=== PATIENT | female | born 1970 | race Caucasian/White ===

== ENCOUNTER 2016-02-27 08:39 | Emergency (ER) | payer OTHER ==
[2016-02-27 09:05] VITALS: BP 138/95
--- NOTE | 2016-02-27 10:19 | UC ---
Back Pain HPI - HPI Summary HPI Summary: Low back pain, no injury, onset 05/2015 constantly. Pt has had injections for pain relief 11/2015. Pt sees Dr. Arias, pain specialist. Pt had imaging recently through [facility], and [facility]. She is uncertain of her dx. she doesnt know where her injections were done. she was seen [address] Arias for the persistent pain and was told there was nothing more she could do. she did give her a topical that she has not used yet. She doesnt have any imaging reports with her. She thought about gpoing to pcp today but thought that she would need xrays and would be sent here instead. pain in left low back. no radiation down legs, no w/n/t. no hematuria. no h/o kidney stones. no dysuria. she is going on a cruise and 2 weeks and needs to feel better. She did PT which made the pain worse. denies saddle anesthesia, loss of bowel and bladder function - History of Current Complaint Chief Complaint: UCBackPain Stated Complaint: LOW BACK PAIN Time Seen by Provider: 02/27/16 10:17 Hx Last Menstrual Period: 3rd week in 2015 - Allergies/Home Medications Allergies/Adverse Reactions: Allergies Allergy/AdvReac Type Severity Reaction Status Date / Time Meperidine [From Demerol HCl] Allergy Vomiting Verified 02/27/16 09:05 Penicillins Allergy Hives Verified 02/27/16 09:05 avoids nsaids Allergy See Comment Uncoded 02/27/16 09:12 Home Medications: Home Medications Acetaminophen [Tylenol] 650 mg PO BID PRN 02/27/16 [History Confirmed 02/27/16] [id number] C- [Glucosamine Chondroitin] 2 cap PO DAILY [History Confirmed 02/27/16] Mesalamine CAP(NF) [Pentasa(NF)] 500 mg PO QID 02/27/16 [History Confirmed 02/26] Metaxalone TAB* [Skelaxin TAB*] 800 mg PO TID PRN 02/27/16 [History Confirmed ] [place]-3 Fatty Acids [Fish Oil] 1,000 mg PO DAILY 02/27/16 [History Confirmed 01/31] Phendimetrazine Tartrate 35 mg PO TID 02/27/16 [History Confirmed 02/27/16] Turmeric (Curcuma Longa) [Turmeric] 1 tab PO QAM 02/27/16 [History Confirmed 01/31] Tylenol Arthritis 1,300 mg PO DAILY PRN 02/27/16 [History Confirmed 02/27/16] PMH/Surg Hx/FS Hx/Imm Hx Previously Healthy: Yes - Surgical History Surgical History: Yes Surgery Procedure, Year, and Place: uterine ablation, cholecystectomy, breast reduction, urethral sling - Family History Known Family History: Positive: Hypertension - Social History Alcohol Use: Occasionally Substance Use Type: None Smoking Status (MU): Former Smoker When Did the Patient Quit Smoking/Using Tobacco: 1993 Review of Systems Constitutional: Negative Skin: Negative Eyes: Negative ENT: Negative Respiratory: Negative Cardiovascular: Negative Gastrointestinal: Negative Genitourinary: Negative Motor: Other - left low back pain Neurovascular: Negative Musculoskeletal: Negative Neurological: Negative Psychological: Negative All Other Systems Reviewed And Are Negative: Yes Physical Exam Triage Information Reviewed: Yes Appearance: Well-Appearing, Well-Nourished - tearful talking about frustration. she declines exam but wants me to just palpate her back to see if I can feel anything in her left low back. Vital Signs: Initial Vital Signs Temp 99.3 F 02/27/16 08:54 Pulse 112 02/27/16 08:54 Resp 18 02/27/16 08:54 BP 138/95 02/27/16 08:54 Vital Signs Reviewed: Yes Musculoskeletal: Positive: Other: - spine - not tender. she has mild TTP at left low back/upper buttocks. She ambulates without difficulty or abnml gait. Psychological: Positive: Consolable Back Pain Course/Dx - Differential Dx/Diagnosis Differential Diagnosis/HQI/PQRI: Herniated Disc, Strain, Sprain, Other - sacroilitis Provider Diagnoses: Left low back pain Discharge - Discharge Plan Condition: Stable Disposition: HOME Patient Education Materials: Back Pain (ED) Referrals: Jenae Ramos PA [Primary Care Provider] - 1 Day Additional Instructions: We talked about different physician specialists in [place] that you prefer to see rather than [place] physicians : Dr Mendez, Dr Demetris Greer, Dr Edwards. It would be benecial to have your records reviewed to have a better understanding of what the source of the problem is, ie - spine vs sacroiliac joint. Neurosurgeon would not be the appropriate specialist to treat SI joint. I recommend that you follow up with your PCP to review your records from Dr Arias so that she can help determine who would be the best specialist to follow up with.
== END 2016-02-27 10:47 | disposition home or self-care (01) ==
LOC: UCCORT 08:39
DX: M54.5 Low back pain (principal); Z88.0 Allergy status to penicillin; Z88.8 Allergy status to other drugs, medicaments and biological substances; Z87.891 Personal history of nicotine dependence
CPT/HCPCS: 99211; G0463